=== PATIENT | female | born 1940 | race Caucasian/White ===

== ENCOUNTER 2017-08-26 06:07 | Day surgery (SDC) | payer MEDICARE ==
--- NOTE | 2017-08-17 09:25 | HP ---
PREOPERATIVE HISTORY AND PHYSICAL: DATE OF PREOPERATIVE HISTORY AND PHYSICAL EXAMINATION: 08/12/17. This patient is scheduled for a same-day surgery admission by Dr. Moran on 08/26/17. ATTENDING SURGEON: Dr. Shailesh Moran * (dictated by Petra Kessler NP). CHIEF COMPLAINT: Gallstones. HISTORY OF PRESENT ILLNESS: The patient is a 77-year-old female recently evaluated by Dr. Moran for gallbladder disease. She described the onset of severe upper and mid abdominal pain about 3 weeks ago. It was accompanied with nausea and vomiting with some relief. She also describes chills and a temperature of 99.4 at that time. She initially thought she might be lactose intolerant since she had ice cream prior to the onset of symptoms. She describes having three similar episodes over the course of the last year, but the most recent one being the worst. The pain was nonradiating. She denied any change in the color of urine or stool. She presented to her primary care provider and underwent ultrasound that was consistent with gallstones and mild thickening of the gallbladder. Dr. Moran has examined the patient and discussed the above findings with her and has recommended laparoscopic cholecystectomy as a same day surgery procedure; he described the nature of the surgical procedure, the rationale for the procedure, the relevant risks and benefits, and today I reviewed the typical postoperative care and recovery. The patient has had a chance to ask questions and stated that she understands the information and is satisfied with the answers given to her questions. She will sign surgical consent on the day of surgery. PAST MEDICAL HISTORY: Osteoarthritis, specifically in her hips; migraine headaches; and varicose veins. PAST SURGICAL HISTORY: Tubal ligation. MEDICATIONS: Multivitamin 1 tablet by mouth daily. ALLERGIES: No known drug allergies. FAMILY HISTORY: The patient's mother had a possible allergy to some type of anesthesia, but she does not know the details. No family history of deep vein thrombosis or pulmonary embolism. No bleeding tendencies. SOCIAL HISTORY: She is ; she is a nonsmoker. She denies the use of alcohol or other substances, and she exercises routinely. REVIEW OF SYSTEMS: Constitutional: No recent fevers or chills. No excessive fatigue or weight loss. Endocrine: No diabetes or thyroid disease. Hematologic: No easy bruising or bleeding. No history of blood transfusions. Respiratory: No dyspnea on exertion, no chronic cough. Cardiovascular: No anginal chest pain or palpitations. Gastrointestinal: Nausea and vomiting with most recent episode of abdominal pain; no diarrhea or constipation or GI bleeding. No change in the color of stool. Genitourinary: No dysuria, no dark colored urine. Musculoskeletal: Occasional bilateral hip pain after a long walk. Integumentary: No chronic rashes or skin changes. Neurologic: No headache or blurred vision or areas of focal weakness. Normal gait. General: No history of deep vein thrombosis of pulmonary embolism; she states that after her tubal ligation in the recovery room she was awake, but she felt paralyzed and claustrophobic. PHYSICAL EXAMINATION GENERAL SURVEY: The patient is a 77-year-old female, well developed, well nourished, in no acute distress. VITAL SIGNS: Height 54 inches, weight 123 pounds, body mass index 21. SKIN: Warm, dry, and intact. HEENT: Benign. NECK: Supple. No cervical lymphadenopathy. No supraclavicular lymphadenopathy. BACK: No CVA tenderness. LUNGS: Breath sounds bilaterally clear and equal. HEART: Regular rate and rhythm. No murmurs or rubs appreciated. ABDOMEN: Active bowel sounds, soft, nondistended, nontender throughout. Negative Coto sign. No obvious masses, organomegaly, or evidence of ventral hernia. EXTREMITIES: Are warm without edema or skin ulceration. PELVIC AND RECTAL: Exam is deferred. She is up-to-date with pelvic exam. NEUROLOGIC: Alert and oriented x3, steady gait. IMPRESSION: Calculus of gallbladder with chronic cholecystitis without obstruction. PLAN/RECOMMENDATIONS: Same-day surgery admission to Dr. Moran's service for laparoscopic cholecystectomy on 08/26/17. BEAN KESSLER NP [id number]/[facility] #: [id number] MAGEN
[~2017-08-26 06:07] MED LIST: Buffered Lidocaine 0.9% SYRIN* 5 ML/SYR SYRINGE INTRADERM ONE; Famotidine IV* 10 MG/ML 2 ML (20 mg) IV ONE; Metoclopramide TAB* 10 MG PO ONE
[2017-08-26] MEDS ORDERED: Metoclopramide TAB* 10 MG ONE (06:14)
[2017-08-26] MEDS ORDERED: Famotidine IV* 10 MG/ML 2 ML (20 mg) ONE (06:14)
[2017-08-26] MEDS ORDERED: Heparin VIAL(*) 5000 UNITS/ML VIAL (FIVE THOUSAND) ONE (06:14)
[2017-08-26] MEDS ORDERED: ceFAZolin 2 GM PREMIX (*) 2 GM/50 ML BAG IVPB ONE (06:14)
[2017-08-26] MEDS ORDERED: Dexamethasone IV* 4 MG/ML 1 ML (4 MG) ONE (07:13)
[2017-08-26] MEDS ORDERED: Ondansetron ODT TAB* 4 MG ONE (07:13)
[2017-08-26] MEDS ORDERED: Lidocaine 2% PF * 5 ML VIAL ONE (07:13)
[2017-08-26] MEDS ORDERED: Propofol* 10 MG/ML 20 ML BTL IV PUSH ONE (07:13)
[2017-08-26] MEDS ORDERED: Cisatracurium* 2 MG/ML MDV 5 ML ONE (07:14)
[2017-08-26] MEDS ORDERED: fentaNYL* 50 MCG/ML 2 ML VIAL (100 MCG VIAL) ONE (07:14)
[2017-08-26] MEDS ORDERED: Midazolam* 1 MG/ML 5 ML VIAL (5 MG) ONE (07:14)
[2017-08-26] MEDS ORDERED: Bupivacaine 0.5% SDV PF* 30ML VIAL ONE (07:18)
[2017-08-26] MEDS ORDERED: Ketorolac INJ* 30 MG/ML 1 ML VIAL ONE (08:08)
[2017-08-26] MEDS ORDERED: EPHEDrine (Pressors)* 50 MG/ML VIAL ONE (08:08)
[2017-08-26] MEDS ORDERED: fentaNYL* 50 MCG/ML 2 ML VIAL (100 MCG VIAL) IV PRN (08:19)
[2017-08-26] MEDS ORDERED: HYDROmorphone INJ* 1 MG/ML CARPUJECT SYRINGE IV PRN (08:19)
[2017-08-26] MEDS ORDERED: Ondansetron ODT TAB* 4 MG PO PRN (08:19)
[2017-08-26] MEDS ORDERED: oxyCODONE/Acetamin 5/325 MG* TAB PO PRN (08:19)
[2017-08-26] MEDS ORDERED: DiMENhydriNATE IV* 50 MG/ML VIAL IV PUSH PRN (08:19)
[2017-08-26] MEDS ORDERED: Naloxone* 0.4 MG/ML 1 ML VIAL IV PRN (08:19)
--- NOTE | 2017-08-26 08:37 | BRIEFOPN ---
Brief Operative Note - Surgery Procedures: Procedures Pre-OP Diagnoses: chronic cholecystitis Post-op Diagnosis: same Procedure: Laparoscopic cholecystectomy Surgeon: Dean Asst: Checo Campbellthesia: AUGUST EBL: minimal IVF: minimal Specimen: gallbladder Drains: none
[2017-08-26] MEDS ORDERED: Petrolatum 5 GM* 5 GM PACKET ONE (08:45)
[2017-08-26 10:35] VITALS: BP 145/74
--- NOTE | 2017-08-26 22:57 | OP ---
CC: Dr. Chidi Spence * DATE OF OPERATION: 08/26/17 - [facility] DATE OF : 44 SURGEON: Shailesh Moran MD DIRECT OF REAL ESTATE: Petra Kessler NP ANESTHESIOLOGIST: Constantine Chavez MD ANESTHESIA: General anesthesia. PRE-OP DIAGNOSIS: Chronic cholecystitis. POST-OP DIAGNOSIS: Chronic cholecystitis. OPERATIVE PROCEDURE: Laparoscopic cholecystectomy. ESTIMATED BLOOD LOSS: Minimal. FLUIDS: Minimal crystalloid fluid given. SPECIMEN: Gallbladder. DRAINS: None. DESCRIPTION OF PROCEDURE: The patient was identified in the preoperative area, brought to the OR, and placed on the operating table in the supine position. Preoperative antibiotics were given. Sequential devices were placed on bilateral lower extremities. General anesthesia was induced. The patient's abdomen was prepped and draped in a standard surgical fashion. A time-out was performed. An infraumbilical incision was made. The skin was then elevated and a Veress needle inserted into the abdominal cavity, which was then allowed to insufflate to a pressure of 15 mmHg. The patient tolerated the insufflation well. The Veress needle remained in the umbilicus and a 5-mm trocar was inserted infraumbilically. A laparoscope was inserted through this and there was no evidence of injury from the trocar insertion or from the Veress needle, which was hung upon a portion of omentum, but then brought out easily. There was no evidence of bleeding. There were no enteric contents. Next, additional trocars were placed, a 12-mm in the subxiphoid area and two 5 mm along the right costal margin. Table was repositioned. Gallbladder was identified. The fundus was grasped and elevated above the liver. The infundibulum was retracted towards the right lower quadrant. This was exposed Calot's triangle nicely. Dissection was carried out on the lateral aspect with electrocautery and also on the medial aspect. The cystic duct and cystic artery were isolated. They were doubly clipped and ligated, and the gallbladder was removed from the liver bed, placed in an endoscopic retrieval bag. A 4x8 gauze was then paced at the liver bed. There was some bleeding along the peritoneal incision site. This was cauterized. Hemostasis was achieved. The 4x8 gauze was then removed, and review of the cystic duct stump and cystic artery stump showed no bleeding or bile leak. The liver bed was dry without evidence of bleeding. Next, the table was repositioned back in neutral. The gallbladder was removed with an endoscopic retrieval bag through the subxiphoid port and passed it off as specimen. We then allowed the abdomen to collapse and trocars were removed under direct vision and all 4 skin incisions were reapproximated with 4-0 Monocryl subcuticular sutures followed by Steri-Strips and sterile dressing. [id number]/[facility] #: [id number] [facility]ITAL[facility]
== END 2017-08-26 10:54 | disposition home or self-care (01) ==
LOC: OR 06:07
PROVIDERS: ATTEND Surgery
DX: K80.10 Calculus of gallbladder with chronic cholecystitis without obstruction (principal); M19.90 Unspecified osteoarthritis, unspecified site; I83.90 Asymptomatic varicose veins of unspecified lower extremity; G43.909 Migraine, unspecified, not intractable, without status migrainosus
CPT/HCPCS: 88304; A9270-GY; J0690; J1100; J1644; J1885; J2250; J2704; J3010

== ENCOUNTER 2018-02-10 15:32 | Emergency (ER) | payer MEDICARE ==
[2018-02-10] MEDS ORDERED: Acetaminophen TAB* 325 MG PO ONE (15:59)
[2018-02-10 17:13] VITALS: BP 129/71
--- NOTE | 2018-02-10 17:15 | ED ---
Upper Extremity Pain - HPI Summary HPI Summary: Patient is a 77-year-old female presents to the ED with arm injury. She states she was walking her dog this afternoon when she fell on the sidewalk, landing directly onto her left arm. She denies falling on an outstretched arm. She states she fell directly onto the humerus. She is endorsing pain up into the shoulder joint without pain to the clavicle or forearm. Denies any pain to the hand. Denies any numbness or tingling, color or temperature changes. She remains in internal rotation and is unable to externally rotate. She has never injured this arm before. She is otherwise healthy and takes no blood thinners. - History of Current Complaint Chief Complaint: EDExtremityUpper Stated Complaint: POSS BREAK IN RT ARM Time Seen by Provider: 02/10/18 15:42 Hx Obtained From: Patient Hx Last Menstrual Period: TUBAL LIGATION Mechanism Of Injury: Blunt Trauma Onset/Duration: Started Hours Ago Timing: Constant Severity Currently: Moderate Pain Location: Arm Character: Aching Alleviating Factor(s): Nothing Associated Signs & Symptoms: Positive: Negative Related History: Dominant Hand Right - Risk Factors Non-Orthopedic Risk Factor: Negative DVT Risk Factors: Negative Septic Arthritis Risk Factor: Negative Compartment Syndrome Risk Factors: Pain - Allergies/Home Medications Allergies/Adverse Reactions: Allergies Allergy/AdvReac Type Severity Reaction Status Date / Time No Known Allergies Allergy Verified 08/26/17 06:22 PMH/Surg Hx/FS Hx/Imm Hx Previously Healthy: Yes Cardiovascular History: Reports: Other Cardiovascular Problems/Disorders - reports bilateral legs varicose vein issue Respiratory History: Reports: Other Respiratory Problems/Disorders - occas sinus issues GI History: Reports: Other GI Disorders - current chronic cholecystitis Musculoskeletal History: Reports: Hx Arthritis - OA in hips Sensory History: Reports: Hx Contacts or Glasses - glasses Opthamlomology History: Reports: Hx Contacts or Glasses - glasses Neurological History: Reports: Hx Migraine - none in many years - Cancer History Hx Chemotherapy: No Hx Radiation Therapy: No - Surgical History Surgery Procedure, Year, and Place: tubal ligation 1982 - [place], [place] Hx Anesthesia Reactions: No - Immunization History Hx Pertussis Vaccination: No Immunizations Up to Date: Yes Infectious Disease History: No Infectious Disease History: Denies: Hx Clostridium Difficile, Hx Hepatitis, Hx Human Immunodeficiency Virus (HIV), Hx of Known/Suspected MRSA, Hx Shingles, Hx Tuberculosis, Hx Known/ Suspected VRE, Hx Known/Suspected VRSA, History Other Infectious Disease, Traveled Outside the [place] in Last 30 Days - Family History Known Family History: Positive: None - Social History Occupation: Unemployed Lives: With Family Alcohol Use: None Hx Substance Use: No Substance Use Type: Reports: None Hx Tobacco Use: No Smoking Status (MU): Never Smoked Tobacco Review of Systems Negative: Fever, Chills, Fatigue, Skin Diaphoresis Negative: Palpitations, Chest Pain Negative: Shortness Of Breath, Cough Genitourinary: Negative Positive: no symptoms reported, see HPI Positive: Arthralgia, Myalgia Negative: Rash, Bruising Negative: Paresthesia, Numbness Psychological: Normal All Other Systems Reviewed And Are Negative: Yes Physical Exam Triage Information Reviewed: Yes Vital Signs On Initial Exam: Initial Vitals Temp Pulse Resp BP Pulse Ox 99.1 F 67 16 124/89 100 02/10/18 15:42 02/10/18 15:42 02/10/18 15:42 02/10/18 15:42 02/10/18 15:42 Vital Signs Reviewed: Yes Appearance: Positive: Well-Appearing, Well-Nourished Skin: Positive: Skin Color Reflects Adequate Perfusion Head/Face: Positive: Normal Head/Face Inspection Eyes: Positive: EOMI, Conjunctiva Clear Neck: Positive: Supple, Nontender, No Lymphadenopathy Respiratory/Lung Sounds: Positive: Clear to Auscultation, Breath Sounds Present Cardiovascular: Positive: RRR, Pulses are Symmetrical in both Upper and Lower Extremities Musculoskeletal: Positive: Pain @ - left arm injury Neurological: Positive: Speech Normal Psychiatric: Positive: Affect/Mood Appropriate Diagnostics - Vital Signs Vital Signs Temp Pulse Resp BP Pulse Ox 02/10/18 15:42 99.1 F 67 16 124/89 100 - Laboratory Lab Statement: Any lab studies that have been ordered have been reviewed, and results considered in the medical decision making process. Course/Dx - Course Course Of Treatment: During the course of treatment, the patient is evaluated for left arm injury. On physical examination, she is neurovascularly intact. X -ray shows : IMPRESSION: COMMINUTED FRACTURE OF THE PROXIMAL HUMERUS. Sling is given. She declines pain medications at this time. She will follow-up with orthopedics next week. She denies any other concerns at this time. She is given Tylenol while in the ED. - Diagnoses Differential Diagnosis/HQI/PQRI: Positive: Fracture (Closed) Provider Diagnoses: Humerus fracture Discharge - Sign-Out/Discharge Documenting (check all that apply): Patient Departure - Discharge Plan Condition: Stable Disposition: HOME Patient Education Materials: Arm Fracture in Adults (ED) Referrals: Chidi Spence MD [Primary Care Provider] - Mamadou Evangelista MD [Medical Doctor] - Additional Instructions: Please follow up with Dr. Evangelista this week or early next week Keep the arm in a sling at all times You may take out to shower/bath, but you may not move the arm Tylenol 650mg three times daily for discomfort - Billing Disposition and Condition Condition: STABLE Disposition: Home
== END 2018-02-10 17:12 | disposition home or self-care (01) ==
LOC: ED 15:32
DX: S42.215A Unspecified nondisplaced fracture of surgical neck of left humerus, initial encounter for closed fracture (principal); W18.30XA Fall on same level, unspecified, initial encounter; Y93.K1 Activity, walking an animal; Y92.480 Sidewalk as the place of occurrence of the external cause
CPT/HCPCS: 99282; A9270-GY

== ENCOUNTER 2019-03-08 06:58 | Day surgery (SDC) | payer MEDICARE ==
[~2019-03-08 06:58] MED LIST changes: +Acetaminophen TAB* 325 MG PO PRN; -Buffered Lidocaine 0.9% SYRIN* 5 ML/SYR SYRINGE INTRADERM ONE; +Buffered Lidocaine 1% SYRIN* 1 ML/SYRINGE INTRADERM ONE; -Famotidine IV* 10 MG/ML 2 ML (20 mg) IV ONE; -Metoclopramide TAB* 10 MG PO ONE
[2019-03-08] MEDS ORDERED: Neomycin/Polymy/Dex OPHTH.OIN* 3.5 GM ONE (07:52)
[2019-03-08] MEDS ORDERED: Ketorolac 0.5% OPHTH (NF) 0.5 % 5 ML BTL ONE (07:52)
[2019-03-08] MEDS ORDERED: Tetracaine 0.5% OPTH.SOL 4 ML* 1 DROP BTL ONE (07:52)
[2019-03-08] MEDS ORDERED: Phenylephrine OPHTH SOL 2.5%* 2 ML ONE (07:52)
[2019-03-08] MEDS ORDERED: Lidocaine 1% MPF ** 5 ML VIAL ONE (07:52)
[2019-03-08] MEDS ORDERED: Tropicamide 1% OPTH.SOL* BTL ONE (07:52)
[2019-03-08] MEDS ORDERED: Cyclopentolate 1% OPTH.SOL* 2 ML BTL ONE (07:52)
[2019-03-08] MEDS ORDERED: Midazolam* 1 MG/ML 2 ML VIAL (2 MG) ONE (08:30)
[2019-03-08 09:20] VITALS: BP 119/69
--- NOTE | 2019-03-08 10:34 | OP ---
DATE OF OPERATION: 03/08/19 [facility] DATE OF : 44 SURGEON: Dr. Suresh Bolanos INDIAN BLANKET WEAVER: None. ANESTHESIA: Topical with intravenous sedation. PRE-OP DIAGNOSIS: Cataract, left eye. POST-OP DIAGNOSIS: Cataract, left eye. OPERATIVE PROCEDURE: Phacoemulsification and cataract extraction with posterior chamber intraocular lens implant, left eye. COMPLICATIONS: None. BLOOD LOSS: None. DESCRIPTION OF PROCEDURE: The patient was brought to the operating room and received a small amount of intravenous sedation. A drop of Tetracaine was placed in her eft eye. She was prepped and draped in the usual sterile fashion for ophthalmic surgery and attention was directed to the left eye where a speculum was placed. A paracentesis was created at the 5 o'clock position and 0.1 cc of 1 percent preservative-free Lidocaine was injected into the anterior chamber followed by DisCoVisc. The eye was digitally stabilized while a 2.75 mm keratome was used to create a triplanar clear corneal incision at the 3 o' clock position. A continuous curvilinear capsulorrhexis was created with a cystotome and Utrata forceps. BSS on a cannula was used to hydrodissect the lens from the capsule. Phacoemulsification was performed in a divide-and- conquer technique to create four fragments which were removed. Residual cortical material was removed with irrigation and aspiration. DisCoVisc was used to inflate the capsular bag and an AU00T0 21.5 diopter lens was folded and inserted into the capsular bag. DisCoVisc was removed using irrigation and aspiration. BSS on a cannula was used to hydrate the corneal stroma and seal the wound. At the end of the case the pupil was round and the lens was centered. The eye was of normal pressure and the wound was water tight. The speculum was removed and topical Maxitrol ointment was placed on the surface of the eye. The eye was closed, patched and shielded and the patient was sent to the recovery room in stable condition with post operative instructions and follow-up appointment given. [id number]/[facility] #: [id number] MAGEN
== END 2019-03-08 09:11 | disposition home or self-care (01) ==
LOC: OREAST 06:58
PROVIDERS: ATTEND Ophthalmology
DX: H25.12 Age-related nuclear cataract, left eye (principal); M19.90 Unspecified osteoarthritis, unspecified site
CPT/HCPCS: A9270-GY; J2250; V2632

== ENCOUNTER 2019-03-15 06:20 | Day surgery (SDC) | payer MEDICARE ==
[2019-03-15] MEDS ORDERED: Midazolam* 1 MG/ML 2 ML VIAL (2 MG) ONE (07:16)
[2019-03-15 08:21] VITALS: BP 119/68
--- NOTE | 2019-03-15 10:15 | OP ---
DATE OF OPERATION/DATE OF DICTATION: 03/15/2019 - [facility] DATE OF : 1940. SURGEON: Dr. Suresh Bolanos. BLENDING TANK HELPER: None. ANESTHESIA: Topical with intravenous sedation. PRE-OP DIAGNOSIS: Cataract, right eye. POST-OP DIAGNOSIS: Cataract, right eye. OPERATIVE PROCEDURE: Phacoemulsification and cataract extraction with posterior chamber intraocular lens implant, right eye. COMPLICATIONS: None. BLOOD LOSS: None. DESCRIPTION OF PROCEDURE: The patient was brought to the operating room and received a small amount of intravenous sedation. A drop of Tetracaine was placed in her right eye. She was prepped and draped in the usual sterile fashion for ophthalmic surgery and attention was directed to the right eye where a speculum was placed. A paracentesis was created at the 11 o'clock position and 0.1 cc of 1 percent preservative-free Lidocaine was injected into the anterior chamber followed by DisCoVisc. The eye was digitally stabilized while a 2.75 mm keratome was used to create a triplanar clear corneal incision at the 9 o'clock position. A continuous curvilinear capsulorrhexis was created with a cystotome and Utrata forceps. BSS on a cannula was used to hydrodissect the lens from the capsule. Phacoemulsification was performed in a divide-and- conquer technique to create four fragments which were removed. Residual cortical material was removed with irrigation and aspiration. DisCoVisc was used to inflate the capsular bag and an AUOOTO 22.0 diopter lens was folded and inserted into the capsular bag. DisCoVisc was removed using irrigation and aspiration. BSS on a cannula was used to hydrate the corneal stroma and seal the wound. At the end of the case the pupil was round and the lens was centered. The eye was of normal pressure and the wound was water tight. The speculum was removed and topical Maxitrol ointment was placed on the surface of the eye. The eye was closed, patched and shielded and the patient was sent to the recovery room in stable condition with post operative instructions and follow-up appointment given. [id number]/[facility] #: [id number] [facility]TDD
[2019-03-15] MEDS ORDERED: Tetracaine 0.5% OPTH.SOL 4 ML* 1 DROP BTL ONE (14:32)
[2019-03-15] MEDS ORDERED: Cyclopentolate 1% OPTH.SOL* 2 ML BTL ONE (14:32)
[2019-03-15] MEDS ORDERED: Phenylephrine OPHTH SOL 2.5%* 2 ML ONE (14:32)
[2019-03-15] MEDS ORDERED: Ketorolac 0.5% OPHTH (NF) 0.5 % 5 ML BTL ONE (14:32)
[2019-03-15] MEDS ORDERED: Tropicamide 1% OPTH.SOL* BTL ONE (14:32)
[2019-03-15] MEDS ORDERED: Lidocaine 1% MPF ** 5 ML VIAL ONE (14:32)
[2019-03-15] MEDS ORDERED: Neomycin/Polymy/Dex OPHTH.OIN* 3.5 GM ONE (14:32)
== END 2019-03-15 08:14 | disposition home or self-care (01) ==
LOC: OREAST 06:20
PROVIDERS: ATTEND Ophthalmology
DX: H25.11 Age-related nuclear cataract, right eye (principal)
CPT/HCPCS: A9270-GY; J2250; V2632